=== PATIENT | female | born 2000 | race Caucasian/White ===

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

== ENCOUNTER 2020-04-29 01:34 | Emergency (ER) | payer BC ==
[~2020-04-29] VITALS: Ht 167.6 cm; Wt 55.3 kg
[~2020-04-29 01:34] MED LIST: SERT25TA PO
[2020-04-29 01:36] VITALS: BP 121/83
--- NOTE | 2020-04-29 03:01 | NUR ---
[employer] at bedside, roommate at bedside as well.
--- NOTE | 2020-04-29 03:16 | NUR ---
Friend remains at bedside, given ice chips. [employer] officer has stepped outside.
== END 2020-04-29 03:33 | disposition home or self-care (01) ==
LOC: ED 02:04
DX: T74.21XA Adult sexual abuse, confirmed, initial encounter (principal); Y04.8XXA Assault by other bodily force, initial encounter; Y93.89 Activity, other specified; Y92.410 Unspecified street and highway as the place of occurrence of the external cause; Y99.8 Other external cause status; Y07.6 Multiple perpetrators of maltreatment and neglect
CPT/HCPCS: 96365; 96366; 96368; 96375; 96376; 99283; 99285

== ENCOUNTER 2020-09-13 13:39 | Emergency (ER) | payer BC, OTHER ==
[~2020-09-13] VITALS: Ht 167.6 cm; Wt 55.0 kg
[~2020-09-13 13:39] MED LIST changes: +ACET650S21 PO; +IBUP200T49 PO
[2020-09-13] MEDS ORDERED: ONDANSETRON 2MG/ML, 2ML ONE (14:21)
[2020-09-13] MEDS ORDERED: MORPHINE SULFATE 4 MG/ML, 1ML ONE ×2 (14:21→15:41)
[2020-09-13] MEDS: MORPHINE SULFATE 4 MG/ML, 1ML IVPush PRN ×2 (14:25→15:46)
[2020-09-13] MEDS ORDERED: ONDANSETRON 2MG/ML, 2ML IVPush ONE (14:30)
[2020-09-13] MEDS ORDERED: SODIUM CHLORIDE 0.9% 1,000 ML IV ONE (14:30)
[2020-09-13 14:45] LABS: BASOPHILS % (AUTO) 0 % (0-1); EOSINOPHILS % (AUTO) 4 % (1-7); LYMPHOCYTES % (AUTO) 22 % (22-44); MEAN CORPUSCULAR HEMOGLOBIN 29.5 pg (27.0-34.8); MEAN CORPUSCULAR HGB CONC 34.5 g/dL (32.4-35.8); MEAN PLATELET VOLUME 7.1 fL (7.4-10.4); MONOCYTES % (AUTO) 5 % (2-9); NEUTROPHILS % (AUTO) 69 % (42-75); PLATELET COUNT 309 x10^3/uL (130-400); RED BLOOD COUNT 5.43 x10^6/uL (3.82-5.3); RED CELL DISTRIBUTION WIDTH 12.4 % (9.6-15.2)
[2020-09-13 14:49] LABS: MD NO
[2020-09-13 14:55] LABS: ALBUMIN 4.3 g/dL (3.4-5.0); ANION GAP 4 mmol/L (5-15); CALCIUM 8.5 mg/dL (8.5-10.1); CHLORIDE 110 mmol/L (98-107); CREATININE 0.73 mg/dL (0.55-1.02)
--- NOTE | 2020-09-13 14:56 | NUR ---
US AT BEDSIDE
--- NOTE | 2020-09-13 15:05 | NUR ---
PT SUPINE ON GURNEY ON CELL PHONE. 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 PT DENIES ANY NEEDS AT THIS TIME. CALL LIGHT AND PERSONAL BELOINGS WITHIN REACH. WILL CONTINUE TO MONITOR.
[2020-09-13 15:06] LABS: ALANINE AMINOTRANSFERASE 22 U/L (12-78); ALKALINE PHOSPHATASE 76 U/L (45-117); BILIRUBIN,TOTAL 0.5 mg/dL (0.2-1.0); TOTAL PROTEIN 7.9 g/dL (6.4-8.2)
--- NOTE | 2020-09-13 15:34 | NUR ---
PT UP TO BEDSIDE COMMODE FOR URINE SAMPLE
--- NOTE | 2020-09-13 15:47 | NUR ---
PT C/O INCREASING ABD PAIN, MEDICATED PER EMAR.
--- NOTE | 2020-09-13 16:00 | NUR ---
PT REPORTS DECREASED PAIN FOLLOWING CLIENT ACCOUNT MANAGER. DENIES ANY NEEDS AT THIS TIME. CALL LIGHT AND PERSONAL BELONGINGS WITHIN REACH, WILL CONTINUE TO MONITOR.
[2020-09-13 16:03] LABS: MICROSCOPIC NOT IND
--- NOTE | 2020-09-13 16:24 | NUR ---
pt to imaging
[2020-09-13] MEDS ORDERED: OMNIPAQUE 350 MG/ML, 100ML BOTTLE ONE (16:39)
[2020-09-13 17:03] VITALS: BP 120/76
--- NOTE | 2020-09-13 17:03 | NUR ---
PT SUPINE ON GURNEY ON CELL PHONE. PT DENIES ANY NEEDS AT THIS TIME. CALL LIGHT AND PERSONAL BELOINGS WITHIN REACH. WILL CONTINUE TO MONITOR.
--- NOTE | 2020-09-13 17:38 | NUR ---
Patient given discharge instructions and they have confirmed that they understand the instructions. Patient ambulatory with steady gait.
== END 2020-09-13 17:40 | disposition home or self-care (01) ==
LOC: ED 14:16
DX: U07.1 COVID-19 (principal); R10.31 Right lower quadrant pain; R11.2 Nausea with vomiting, unspecified
CPT/HCPCS: 36415; 74177; 76857; 80053; 81003; 84703; 85025; 96361; 96374; 96375; 96376; 99285; J2270; J2405; J7030; Q9967